=== PATIENT | female | born 1990 | race African-American/Black ===

== ENCOUNTER 2021-05-19 14:02 | Outpatient (CLI) | payer OTHER, SELFPAY ==
--- NOTE | ~2021-05-19 | US_ITS ---
EXAMINATION: US OB transvaginal DATE: 05/19/2021 14:26 INDICATION: Spotting during first trimester . TECHNIQUE: Real-time pelvic ultrasound utilizing both a transvaginal and transabdominal probe was pe rformed. The interpreting radiologist was not present for the study. COMPARISON: None. FINDINGS: The uterus measures 8.7 x 4.7 x 5.7 cm. There is an intrauterine gestational sac. A yolk sac is iden tified but there is no discernible pole. The mid sac diameter measures 7-8 mm. The right ovary measures 2.6 x 2.2 x 4.0 cm and contains a 1.4 similar anechoic cyst. The left ovary measures 2.6 x 2.1 x 2.2 cm. Minimal anechoic free fluid in the cul-de-sac. IMPRESSION: 1. Intrauterine gestational sac with subtle yolk sac but no discernible pole yet evident likely due to early stage of . Consider follow-up with serial beta-hCG levels and repeat imaging a s clinically indicated. Reviewed, dictated and finalized at location A. EDUCATOR IMPRESSION: 1. Intrauterine gestational sac with subtle yolk sac but no discernible p ole yet evident likely due to early stage of . Consider follow-up with serial beta-hCG levels and repeat imaging as clinically indicated.
== END 2021-05-19 14:03 ==
PROVIDERS: Visit Provider Nurse Practitioner
DX: O26.851 Spotting complicating pregnancy, first trimester (principal)
CPT/HCPCS: 76817

== ENCOUNTER 2021-05-25 14:05 | Outpatient (CLI) | payer OTHER, SELFPAY ==
--- NOTE | ~2021-05-25 | US_ITS ---
EXAMINATION: US OB transvaginal DATE: 05/25/2021 14:38 INDICATION: First trimester dating TECHNIQUE: Real-time pelvic transabdominal and transvaginal ultrasound was performed. COMPARISON: None. FINDINGS: The uterus measures 8.8 x 4.4 x 5.5 cm. There is an intrauterine gestational sac. There is a 7 mm hypoechoic area adjacent to the gestational sac. A yolk sac is identified. heart motion is identified measuring 112 beats per minute (bpm) by M-mode Doppler. The crown rump length me asures 4 mm , which correlates with an estimated gestational age of 6 weeks and 1 day(s) (+/-) 4 day( s). The right ovary measures 2.8 x 2.1 x 3.8 cm. The left ovary measures 2.3 x 2.7 x 2.3 cm. There is nor mal vascular flow in the ovaries. There is no free fluid in the pelvis. IMPRESSION: 1. Live intrauterine with an estimated gestational age of 6 weeks and 1 day(s) (+/-) 4 day( s) and an estimated delivery date of 01/17/2022. Reviewed, dictated and finalized at location F. UAGE INTERPRETER IMPRESSION: 1. Live intrauterine with an estimated gestational age of 6 weeks and 1 day(s) (+/-) 4 day(s) and an estimated delivery date of 01/17/2022.
== END 2021-05-25 14:06 ==
PROVIDERS: Visit Provider Nurse Practitioner
DX: Z36.87 Encounter for antenatal screening for uncertain dates (principal); Z3A.01 Less than 8 weeks gestation of pregnancy; O36.8911 Maternal care for other specified fetal problems, first trimester, fetus 1
CPT/HCPCS: 76817

== ENCOUNTER 2021-06-10 10:59 | Outpatient (CLI) | payer OTHER, SELFPAY ==
--- NOTE | ~2021-06-10 | US_ITS ---
EXAMINATION: US OB transvaginal DATE: 06/10/2021 11:23 INDICATION: Subchorionic hematoma follow-up, first trimester TECHNIQUE: Real-time pelvic transabdominal and transvaginal ultrasound was performed. COMPARISON: 05/25/2021 FINDINGS: The uterus measures 10.7 x 6.4 x 7.1 cm. There is an intrauterine gestational sac. There i s a subtle 5 mm x 6 mm hypoechoic area adjacent to the gestational sac with slight decrease in size s lui the comparison examination A yolk sac is identified. heart motion is identified measuring 177 beats per minute (bpm) by M-mode Doppler. The crown rump length measures 1.9 cm , which cor relates with an estimated gestational age of 8 weeks and 3 day(s) (+/-) 5 day(s). The right ovary measures 3.4 x 1.9 x 3.9 cm. The left ovary measures 2.6 x 1.5 x 2.2 cm. There is no free fluid in the pelvis. IMPRESSION: 1. Live intrauterine with an estimated gestational age of 8 weeks and 3 day(s) (+/-) 5 day( s) and an estimated delivery date of 01/17/2022. 2. Small subchorionic hematoma with decrease in size. Reviewed, dictated and finalized at location B. L TESTER IMPRESSION: 1. Live intrauterine with an estimated gestational age of 8 weeks and 3 day(s) (+/-) 5 day(s) and an estimated delivery date of 01/17/2022. 2. Small subchorionic hematoma with decrease in size.
== END 2021-06-10 11:00 ==
PROVIDERS: Visit Provider Obstetrics & Gynecology Gynecology
DX: O36.8910 Maternal care for other specified fetal problems, first trimester, not applicable or unspecified (principal); Z3A.08 8 weeks gestation of pregnancy
CPT/HCPCS: 76817

== ENCOUNTER 2021-06-23 11:26 | Outpatient (CLI) | payer OTHER, SELFPAY ==
--- NOTE | ~2021-06-23 | US_ITS ---
EXAMINATION: US OB limited EXAM DATE: 06/23/2021 11:45 INDICATION: Subchorionic hematoma. 1st trimester. TECHNIQUE: Pelvic obstetrical transabdominal sonogram was performed by a technologist. There are mu ltiple grayscale and Doppler images available for interpretation. Comparison is made to prior examina tion from 06/10/2021. FINDINGS: Uterus measures 13.4 x 7.0 x 7.6 cm. There is intrauterine gestation sac. pole with heart rate confirmed at 165 beats per minute. Yolk sac is identified. There is no sonographic brina dence of subchorionic hemorrhage. Ovaries not identified. IMPRESSION: Live intrauterine gestation with without evidence of subchorionic hematoma. Reviewed, dictated and finalized at location G. IMPRESSION: Live intrauterine gestation with without evidence of subchorionic h ematoma.
== END 2021-06-23 11:27 ==
PROVIDERS: Visit Provider Obstetrics & Gynecology Gynecology
DX: O36.8911 Maternal care for other specified fetal problems, first trimester, fetus 1 (principal); Z3A.10 10 weeks gestation of pregnancy
CPT/HCPCS: 76815

== ENCOUNTER → 2021-08-26 10:59 | Outpatient (CLI) | payer OTHER, MEDICAID, SELFPAY ==
--- NOTE | ~2021-08-26 | US_ITS ---
EXAMINATION: US OB /maternal detail DATE: 08/26/2021 11:29 INDICATION: Assess anatomy during second trimester TECHNIQUE: Multiple obstetric sonographic images performed. COMPARISON: 06/23/2021 and 06/10/2021 FINDINGS: There is a single living fetus in breech presentation. The placenta is anterior and not low-lying wi th caudal margin 7.4 cm from the internal cervical os. Amniotic fluid volume is subjectively normal. heart rate of 151 beats per minute. The following anatomy was identified as normal: Ventricles, choroid plexus, falx and cava septum pellucidum Cerebellum and cisterna magna Nuchal fold Upper lip Spine Heart Diaphragm Stomach Kidneys Bladder 3 vessel cord and cord insertion Bilateral upper and lower extremities including hands and feet The following biometric data were obtained: BPD: 4.6 cm -> 20 weeks 0 days Head circumference: 17.3 cm -> 19 weeks 6 days Abdominal circumference: 14.3 cm -> 19 weeks 5 days Femur length: 3.2 cm -> 19 weeks 6 days These measurements are concordant. Head circumference to abdominal circumference ratio: 1.21 (normal range 1.08-1.26). Estimated weight: 310 g (+/-) 47 g. or 11 oz. (+/-) 2 oz. IMPRESSION: 1. Single living fetus with breech presentation with heart rate of 151 bpm. 2. Estimated weight is 64th percentile by Hadlock criteria when 01/17/2022 is used as the ELIZABETH based upon earliest ultrasound performed at this institution on 06/20/2021. Please correlate with clin ical information or earlier ultrasounds for most accurate ELIZABETH. 3. Normal survey. Reviewed, dictated and finalized at location B. IMPRESSION: 1. Single living fetus with breech presentation with heart rate of 151 b pm. 2. Estimated weight is 64th percentile by Hadlock criteria when 01/18/20 22 is used as the ELIZABETH based upon earliest ultrasound performed at this institut ion on 06/20/2021. Please correlate with clinical information or earlier ultraso unds for most accurate ELIZABETH. 3. Normal survey.
== END ==
PROVIDERS: PCP Obstetrics & Gynecology Gynecology; Visit Provider Obstetrics & Gynecology Gynecology
DX: Z36.9 Encounter for antenatal screening, unspecified (principal)
CPT/HCPCS: 76805

== ENCOUNTER 2021-09-26 10:25 | Observation (INO) | payer OTHER, SELFPAY ==
[2021-09-26 10:57] VITALS: BMI 35.9
[2021-09-26 10:59] VITALS: BP 126/67; PULSE 78
[2021-09-26 11:42] LABS: Appearance Urine Clear (Clear); Bilirubin Urine Negative (Negative); Blood Urine 3+ (Negative); Color Urine Yellow (Yellow); Glucose Urine UA Negative (Negative); Ketones Urine Negative (Negative); Leukocyte Esterase Ur Negative LEU/UL (Negative); Nitrate Urine Negative (Negative); Protein Urine Negative (Negative); Specific Grav Ur 1.015 (1.001-1.035); Urobilinogen Urine 0.2 mg/dL (<2.0)
[2021-09-26 11:48] LABS: Bacteria Urine Trace /hpf; RBC Urine 51-75 /hpf (0-2); Squamous Epithelial Cell Urine Occasional /hpf (Few); WBC Urine 0-3 /hpf
[2021-09-26 11:54] LABS: Add Urine Microscopic? YES
--- NOTE | 2021-09-29 13:29 | P.PNOB_ITS ---
OB - Triage/Final Diagnosis Visit Information Comments/Additional reasons for admission: I have assessed the risk for this patient, Merari Mari, and determined that she would benefit from observation care. Evaluation Laboratory results: Laboratory Tests 09/26/21 11:06 Urine Color Yellow Urine Appearance Clear Urine pH 7.0 Ur Specific [place]ison 1.015 Urine Protein Negative Urine Glucose (UA) Negative Urine Ketones Negative Ur Blood (Man) 3+ H Urine Nitrate Negative Urine Bilirubin Negative Urine Urobilinogen 0.2 Leukocyte Esterase Rfl Negative Urine RBC 51-75 H Urine WBC 0-3 Ur Squamous Epith Cells Occasional Urine Bacteria Trace Final Diagnosis (1) Hematuria: Code(s): R31.9 - Hematuria, unspecified Status: Acute
== END 2021-09-26 11:55 | disposition home or self-care (01) ==
PROVIDERS: Admitting Provider Obstetrics & Gynecology; Visit Provider Obstetrics & Gynecology
DX: O26.899 Other specified pregnancy related conditions, unspecified trimester (principal); R31.9 Hematuria, unspecified; Z3A.00 Weeks of gestation of pregnancy not specified
CPT/HCPCS: 81001; G0378; G0379

== ENCOUNTER → 2021-11-11 11:29 | Outpatient (CLI) | payer OTHER, MEDICAID, SELFPAY ==
--- NOTE | ~2021-11-11 | US_ITS ---
EXAMINATION: US OB follow up DATE: 11/11/2021 11:51 INDICATION: Intrauterine growth restriction. Third trimester. TECHNIQUE: Real-time ultrasound of the pelvis was performed. COMPARISON: Ultrasound 08/26/2021, 05/19/2021, 05/19/21 FINDINGS: There is a single living fetus in vertex presentation. The placenta is anterior. heart rate is 155 beats per minute (bpm). The amniotic fluid index is 16.2 cm, which is normal. The following biometric data were obtained: Biparietal diameter (BPD): 7.4 cm; head circumference (HC): 26.8 cm; abdominal circumference (AC): 26 .3 cm; femur length (FL): 5.8 cm. These measurements are concordant. Estimated weight is 1518 g +/- 228 g, which correlates with the 28th percentile when 01/17/22 i s used as estimated date of delivery. As single measurements, these parameters are each equal to the following estimated gestational ages w ith ranges of +/- 2 standard deviations: BPD: 29 weeks 5 days (27 weeks 4 days - 31 weeks 6 days). HC: 29 weeks 1 days (27 weeks 1 days - 31 weeks 2 days). AC: 30 weeks 3 days (27 weeks 3 days - 33 weeks 2 days). FL: 30 weeks 1 days (28 weeks 1 days - 32 weeks 2 days). estimated gestational age based solely on measurements from this exam is 29 weeks 6 days +/- 2 weeks 1 days. IMPRESSION: 1. Single living fetus in vertex presentation. 2. Estimated weight is 1518 g +/- 228 g, which correlates with the 28th percentile when is used as estimated date of delivery. This date was set by ultrasound on 05/25/2021. Reviewed, dictated and finalized at location A. IMPRESSION: 1. Single living fetus in vertex presentation. 2. Estimated weight is 1518 g +/- 228 g, which correlates with the 28th percentile when 01/17/22 is used as estimated date of delivery. This date was s et by ultrasound on 05/25/2021.
== END ==
PROVIDERS: PCP Advanced Practice Midwife; Visit Provider Advanced Practice Midwife
DX: Z36.89 Encounter for other specified antenatal screening (principal)
CPT/HCPCS: 76816

== ENCOUNTER 2021-12-08 16:56 | Observation (INO) | payer OTHER, MEDICAID, SELFPAY ==
[2021-12-08 17:19] VITALS: BP 125/77; PULSE 91
[2021-12-08 17:24] VITALS: BMI 37.4
--- NOTE | 2021-12-08 17:24 | OBADM ---
This patient, Merari Mari, admitted to the OB room OB Post 116 for observation. Patient/family oriented to hospital policies and general routines including ID bracelet, bed and alarms, visiting hours, pain management, procedures, bathroom and other care routines, personal items, smoking policy, room service/diet, and visiting hours. Patient/Family are encouraged to report perceived risks to care and to ask questions if they do not understand what they are told or what they should do.
[2021-12-08 17:31] VITALS: BP 120/73; PULSE 81
[2021-12-08 17:46] VITALS: BP 121/68; PULSE 78
--- NOTE | 2021-12-08 18:05 | PM.OBTRLD ---
OB - Triage/Final Diagnosis Visit Information Comments/Additional reasons for admission: I have assessed the risk for this patient, Merari Mari, and determined that she would benefit from observation care. Evaluation Vital signs: Vital Signs - 24 hr 12/08/21 17:19 12/08/21 17:31 12/08/21 17:46 Pulse Rate 91 81 78 Blood Pressure 125/77 120/73 121/68 MDM - Vaginal Bleeding Differential Diagnosis labor, placental abruption Medical Records Attestation: I reviewed the patient's medical records. Lab Data Attestation: I reviewed the patient's lab results. Rh positive
--- NOTE | 2021-12-08 18:07 | PM.OBPNVD ---
OB - PN: Subj Subjective Date/time seen: 12/08/21 3774 Patient comments: no complaints OB - PN A/P Assessment and Plan (1) Vaginal bleeding during : Code(s): O46.90 - Antepartum hemorrhage, unspecified, unspecified trimester Status: Acute Plan Discharge home. Discussed PTL, ROM, movement, and vaginal bleeding precautions. Pt scheduled for f/up tomorrow in the office. Time Spent With Patient Time: Total time spent is greater than 50% in coordination of care (as documented) at patient's floor/unit and/or counseling patient: Review of Systems Review of Systems: Pt reports sudden bright red bleeding x 1 that was present with wiping after using the restroom. She denies trauma, fall, and recent intercourse. She denies contractions, abdominal pain, ROM, or increased pelvic pressure. She had no bleeding upon arrival to the hospital. All systems reviewed & are unremarkable except as noted in HPI and below Constitutional: Constitutional: Reports no additional constitutional complaints Exam Const: General: cooperative, healthy appearing and comfortable Chest: Chest palpation & inspection: normal inspection of the chest Resp: Effort & Inspection: normal respiratory effort GI: Inspection: normal to inspection GI Palp: Yes Soft to palpation : External Female Exam: normal external appearance Speculum Exam - Vagina: normal appearance of the vagina (no vaginal bleeding. Negative pooling. Cervix visually closed and long. ) Speculum Exam - Cervix: normal appearance of the cervix and Cervical os closed (closed/long/high, posterior. Moderate consistency. ) Bimanual exam- vagina & uterus: uterine size normal and uterine shape normal Manual OB Exam: Not dilated nor effaced Skin: General skin exam: normal color Neuro: General: patient oriented x3 Extrem: General: normal to inspection Psych: Appearance: grossly normal Mental Status: mental status grossly normal MDM - Vaginal Bleeding Differential Diagnosis labor, placental abruption
--- NOTE | 2021-12-08 18:09 | PC.NURSE ---
1805--Plan of care discussed with pt. Pt reminded to come to hospital if any pain,bleeding or leakage begins.
== END 2021-12-08 18:14 | disposition home or self-care (01) ==
LOC: ANHOBPP 17:02
PROVIDERS: Admitting Provider Obstetrics & Gynecology Gynecology; PCP Advanced Practice Midwife; Visit Provider Obstetrics & Gynecology Gynecology
DX: O46.93 Antepartum hemorrhage, unspecified, third trimester (principal); Z3A.34 34 weeks gestation of pregnancy
CPT/HCPCS: G0378; G0379

== ENCOUNTER → 2021-12-14 11:35 | Outpatient (CLI) | payer OTHER, MEDICAID, SELFPAY ==
--- NOTE | ~2021-12-14 | US_ITS ---
EXAMINATION: US OB follow up DATE: 12/14/2021 11:57 INDICATION: History of IUGR, third trimester TECHNIQUE: Real-time ultrasound of the pelvis was performed. The interpreting radiologist was not pre sent for the study. COMPARISON: 11/11/2021 FINDINGS: There is a single living fetus in vertex presentation. The placenta is anterior. card iac activity and movement are noted. heart rate is 138 beats per minute (bpm). The amniot ic fluid index is 12.9 cm which is normal (normal range: 7.9 cm to 24.9 cm). The following biometric data were obtained: Biparietal diameter (BPD): 8.3 cm; head circumference (HC): 29.8 cm; abdominal circumference (AC): 29 .9 cm; femur length (FL): 6.3 cm. These measurements are concordant. Estimated weight is 2181 g +/- 327 g, which correlates with the 9th percentile when 01/17/2022 is used as estimated date of delivery. As single measurements, these parameters are each equal to the following estimated gestational ages w ith ranges of +/- 2 standard deviations: BPD: 33 weeks 4 days ( 30 weeks 3 days - 36 weeks 4 days). HC: 33 weeks 0 days ( 30 weeks 0 days - 35 weeks 6 days). AC: 33 weeks 6 days ( 31 weeks 0 days - 36 weeks 6 days). FL: 32 weeks 3 days ( 29 weeks 3 days - 35 weeks 3 days). estimated gestational age based solely on measurements from this exam is 33 weeks 2 days +/- 2 weeks 2 days. IMPRESSION: 1. Single living fetus in vertex presentation. 2. Normal amniotic fluid index. 3. Estimated weight is 2181 g +/- 327 g, which correlates with the 9th percentile when 01/18/20 22 is used as estimated date of delivery. Reviewed, dictated and finalized at location B. IMPRESSION: 1. Single living fetus in vertex presentation. 2. Normal amniotic fluid index. 3. Estimated weight is 2181 g +/- 327 g, which correlates with the 9th pe rcentile when 01/17/2022 is used as estimated date of delivery.
== END ==
PROVIDERS: PCP Advanced Practice Midwife; Visit Provider Advanced Practice Midwife
DX: Z36.9 Encounter for antenatal screening, unspecified (principal)
CPT/HCPCS: 76816

== ENCOUNTER 2022-01-15 00:15 | Inpatient (IN) | payer OTHER, MEDICAID, SELFPAY ==
--- NOTE | 2021-12-23 14:15 | PC.NURSE ---
Patient states Dr Strickland is going to change her schedule C/S if she does not delivery as a from 01/18/22 at 0730 to 01/25/22 at 0730 Patient given requisition for lab draw on Sat before her scheduled C/S
[2022-01-15] VITALS (43 sets, daily range): BP systolic 105–130; BP diastolic 34–81; PULSE 57–91; RESP 16–18; TEMP 35.8–36.8; O2SAT 95–100; BMI 40.4
--- NOTE | 2022-01-15 00:15 | LDADM ---
This patient, Merari Mari, was admitted to Labor/Delivery/Recovery 102 on 01/15/22 at 00:15. Plans for labor, pain management and were discussed with patient. Patient/family oriented to hospital policies and general routines including ID bracelet, bed and alarms, visiting hours, pain management, procedures, bathroom and other care routines, personal items, smoking policy, room service/diet and guest tray routines, infant security routines, and visiting hours. Patient/Family are encouraged to report perceived risks to care and to ask questions if they do not understand what they are told or what they should do. See OBIX for further documentation.
--- NOTE | 2022-01-15 01:44 | WPDHPUPDATE1 ---
History and Physical Update Update Date/Time: 01/15/22 01:44 History and Physical has been reviewed, including an updated exam of the patient. There are NO changes in the patient's condition. Risks, benefits, and alternatives have been discussed and questions answered. Patient agrees to proceed with procedure.
--- NOTE | 2022-01-15 01:45 | PM.IMHP ---
H&P: HPI History of Present Illness Date/Time: 01/15/22 01:45 Chief Complaint: Labor at 39 and 5/7 weeks with previous Narrative: the patient is a 31-year-old 3 para 1 aborted 1 admitted in early labor 39 and 5/7 weeks. Patient with previous low-transverse section wishing to have trial of labor. On admission patient is 1.5cm. heart tones are reactive. Patient then proceeded to have a 8minute bradycardic episode. After discussion with the patient it was decided to proceed with repeat . was complicated in the 1st trimester by subchorionic hematoma that resolved. The has been otherwise uncomplicated. labs B positive, rubella nonimmune, RPR negative, hepatitis-B surface antigen negative, HIV negative, group B strep negative. Review of Systems Review of Systems: Contractions good movement PMFSH Past Medical History Medical History (Updated 01/15/22 @ 01:51 by Bisi Strickland MD) Sickle cell trait Surgical History Surgical History (Updated 01/15/22 @ 01:51 by Bisi Strickland MD) History of 36 weeks intrauterine growth restriction 4lb 2oz. 2014 Family History Family History (Updated 01/15/22 @ 01:49 by Bisi Strickland MD) Grandparent Diabetes mellitus Cerebrovascular accident Hypertension Other Unknown family medical history Social History Social History Substance use: never Spiritual care concerns: No Meds Home Medications and Allergies Home Medications Medication Instructions Recorded Confirmed Type prenat.vits,smita,dze-psus-vibuo 1 tablet PO DAILY 09/26/21 09/26/21 History Allergies Allergy/AdvReac Type Severity Reaction Status Date / Time No Known Allergies Allergy Verified 12/23/21 13:53 Exam Const: General: alert, awake and other ( uncomfortable with contractions) Resp: Effort & Inspection: normal respiratory effort GI: GI Palp: No abdominal tenderness, Yes Soft to palpation and Yes Other GI palpation findings present ( gravid ) : Manual OB Exam: dilated 2 cm, effaced 50% and station (per RN) -2 Assessment and Plan Assessment and plan (1) 39 weeks gestation of : Code(s): Z3A.39 - 39 weeks gestation of Status: Acute (2) History of : Code(s): Z98.891 - History of uterine scar from previous surgery Status: Acute (3) bradycardia: Status: Acute Assessment and Plan: due to the 8 minute bradycardic episode in early labor plan is to proceed with repeat section
--- NOTE | 2022-01-15 01:50 | P.PNAN_ITS ---
Anes - Eval Pre Procedure Procedure: Operation Date: 01/15/22 02:00 Proposed Procedures p Section(Not Applicable) - Bisi Strickland MD Operation Date: 01/18/22 07:30 Proposed Procedures p Section - Bisi Strickland MD Date/Time: 01/15/22 01:50 Pre Op Diagnosis: contractions Patient Data Age: 31 Gender: F Height: 1.6 m Weight: 103.5 kg Allergies Allergy/AdvReac Type Severity Reaction Status Date / Time No Known Allergies Allergy Verified 12/23/21 13:53 Home Medications Medication Instructions Recorded Confirmed Type prenat.vits,smita,lfx-ihcr-rayhr 1 tablet PO DAILY 09/26/21 09/26/21 History Laboratory Tests 01/15/22 01/15/22 01:39 01:39 WBC Pending RBC Pending Hgb Pending Hct Pending MCV Pending MCH Pending MCHC Pending RDW Pending Plt Count Pending MPV Pending Immature Gran % (Auto) Pending Neut % (Auto) Pending Lymph % (Auto) Pending [place] % (Auto) Pending Eos % (Auto) Pending Baso % (Auto) Pending Lymph # (Auto) Pending [place] # (Auto) Pending Eos # (Auto) Pending Baso # (Auto) Pending Abs Immat Gran (auto) Pending Absolute Neuts (auto) Pending Absolute Nucleated RBC Pending Nucleated RBC % Pending RPR Pending Patient hx anesthesia problems: none Family hx anesthesia problems: none Results Review: All pre-operative results and documents have been reviewed as part of the pre- operative evaluation. [facility] Past Medical History Medical History Morbid obesity and not yet delivered Sickle cell trait Surgical History Surgical History History of 36 weeks intrauterine growth restriction 4lb 2oz. 2014 Family History Family History Grandparent Diabetes mellitus Cerebrovascular accident Hypertension Other Unknown family medical history Social History Social History Substance use: never Spiritual care concerns: No Exam Day of Procedure 01/15/22 01:50 Patient weight: morbidly obese Airway: Mallampati scale class II
[2022-01-15 01:55] LABS: Hematocrit 30.7 % (37.0-47.0); Hemoglobin 9.7 g/dL (12.0-15.0); Immature Platelet Fraction Pct 10.4 % (0.9-11.2); Mean Corpuscular HGB Conc 31.6 g/dl (32-36); Mean Corpuscular Hemoglobin 21.8 pg (26-34); Mean Platelet Volume 12.2 fl (7.4-10.4); Platelet Count Result 344 k/mm3 (150-375); Red Blood Count 4.45 M/mm3 (4.2-5.4); Red Cell Distribution Width 15.4 % (11.5-14.5); White Blood Count 7.7 K/mm3 (4.5-10.0)
[2022-01-15] MEDS: LACTATED RINGERS 1,000 ML 125 ML IV CONT (02:00)
[2022-01-15] MEDS: ceFAZolin 2 GM/D5W 50 ML 2 GM/50 ML BAG IVPB (02:05)
[2022-01-15 02:27] LABS: Band Neutrophils Percent 3 % (0-6); Eosinophils Absolute Manual 0.07 K/mm3 (0.02-0.5); Eosinophils Percent Manual 1 % (0-4); Lymphocytes Absolute Manual 1.84 K/mm3 (1.1-4.5); Monocytes Percent Manual 4 % (3-9); Myelocytes Percent 1 %; Neutrophils Absolute Manual 5.23 K/mm3 (1.7-7.2); Neutrophils Percent Manual 65 % (46-73); Plasma Cells 2; Total Cells Counted 100
[2022-01-15 02:28] LABS: Anisocytosis 1+ (NORMAL); Giant Platelets Present; Hypochromasia 1+ (NORMAL); Macrocytosis 1+ (NORMAL); Microcytosis 1+ (NORMAL); Platelet Estimate Adequate (Adequate); Poikilocytosis 1+ (NORMAL); Schistocytes None Seen (NORMAL); Tear Drop Cells 1+ (NORMAL)
[2022-01-15 02:29] LABS: Atypical Lymphocytes Present; Smudge Cells FEW
--- NOTE | 2022-01-15 02:48 | W.PM.PROC2 ---
Procedure Note - Detailed Date of Procedure 01/15/22 Pre-op Diagnosis Intrauterine at 39-5/7 weeks previous section labor bradycardic episode Post-op Diagnosis Same Procedure Performed repeat low transverse section Surgeon Bisi Strickland MD Anesthesia Spinal Findings Male infant 6lb 3oz with 9 and 9 Apgars. Normal-appearing tubes, ovaries, and uterus. Description of Procedure The patient was taken to the operating room and placed under spinal anesthesia. She was prepped and draped in the usual sterile fashion. Once anesthesia was deemed adequate, a Pfannenstiel skin incision was made with a scalpel and carried down to the underlying layer of fascia. Fascia was nicked in the midline. The incision was extended laterally using Tyler scissors. Ochsner was used to tent the fascia which was then dissected off using sharp and blunt dissection. The rectus muscles are in the midline and the peritoneum tented and entered. The incision was extended with blunt traction. There is a band of scar tissue at the right fascia which is cut with Tyler scissors. The incision was again extended with adequate room. The bladder blade is placed. The vesicouterine peritoneum was tented entered with Metzenbaum scissors and extended laterally. The bladder flap is created using manual dissection. The lower uterine segment was incised in a transverse fashion with the scalpel. The incision was extended laterally using blunt traction. The 's head was brought up into the incision and delivered while the administrative library assistant applied fundal pressure. The remainder of the was fully delivered and the cord clamped and cut. The infant was handed to the waiting nursery nurse and anesthesiology medical doctor. The placenta is removed using manual traction after cord for gases and lap were taken. The uterus is cleared of all clots and debris and exteriorized. The uterine incision was closed using 0 Monocryl in a running locked fashion. Same suture was used to imbricate. Good hemostasis is noted. Cul-de-sac is irrigated and the uterus returned to the abdomen. The gutters were irrigated. The incision was again inspected and noted to be hemostatic. The fascia was closed using 0 Vicryl in a running fashion. Subcutaneous tissues are irrigated and made hemostatic using Bovie cautery. The skin incision was closed using 4-0 Vicryl in a subcuticular fashion. Dermaflex was placed over the incision. Sponge, needle, and instrument counts are correct per the OR staff. Patient was given Ancef prior to incision. Estimated Blood Loss 645 Drains Yes ( Gracia catheter) Packing No Pathology Yes ( placenta) Complications No immediate complications Condition Stable Disposition Floor
--- NOTE | 2022-01-15 02:52 | PM.OBDSVD ---
DS: Admitting Diagnosis Discharge Date 01/18/22 Admitting Diagnosis intrauterine at 39 and 5/7 labor previous DS: Discharge Diagnosis Discharge Diagnosis (1) bradycardia: Status: Acute (2) History of : Code(s): Z98.891 - History of uterine scar from previous surgery Status: Acute (3) 39 weeks gestation of : Code(s): Z3A.39 - 39 weeks gestation of Status: Acute (4) delivery delivered: Code(s): O82 - Encounter for delivery without indication Status: Acute OB - DS: Summary OB Procedures : Ultrasound OB Procedures Intrapartum: low cervical, transverse OB Procedures: : None Peripartum Data Delivery Method: Section Procedures: Procedures Operation Date: 01/15/22 02:00 <No data on this case meets the specified criteria> Operation Date: 01/18/22 07:30 <No data on this case meets the specified criteria> complications: none Status at Discharge Functional status at discharge: independent ambulation Overall status at discharge: patient is progressing back to baseline Time Spent with Patient Time attestation: Total time spent providing and/or coordinating discharge services: DS: Data Data Completed and Pending Labs on day of discharge: Labs from last 24 hours 01/15/22 01/15/22 01/15/22 01:39 01:39 01:39 WBC 7.7 RBC 4.45 Hgb 9.7 L Hct 30.7 L MCV 69.0 L MCH 21.8 L MCHC 31.6 L RDW 15.4 H Plt Count 344 MPV 12.2 H Immature Gran % (Auto) Not Reportable Neut % (Auto) Not Reportable Lymph % (Auto) Not Reportable [place] % (Auto) Not Reportable Eos % (Auto) Not Reportable Baso % (Auto) Not Reportable Lymph # (Auto) Not Reportable [place] # (Auto) Not Reportable Eos # (Auto) Not Reportable Baso # (Auto) Not Reportable Abs Immat Gran (auto) Not Reportable Absolute Neuts (auto) Not Reportable Absolute Nucleated RBC Not Reportable Total Counted 100 Neutrophils % (Manual) 65 Band Neutrophils % 3 Lymphocytes % (Manual) 24.0 Monocytes % (Manual) 4 Eosinophils % (Manual) 1 Myelocytes % 1 Nucleated RBC % Not Reportable Abs Neuts (Manual) 5.23 Abs Lymphs (Manual) 1.84 Abs Monocytes (Manual) 0.30 Absolute Eos (Manual) 0.07 Atypical Lymphocytes Present Plasma Cells 2 Smudge Cells Few Platelet Estimate Adequate Giant Platelets Present % Immature Plt Fraction 10.4 Hypochromasia 1+ Poikilocytosis 1+ Anisocytosis 1+ Microcytosis 1+ Macrocytosis 1+ Tear Drop Cells 1+ Schistocytes None seen RPR Pending Blood Type B Positive Antibody Screen Negative Discharge Plan Discharge Attending physician on discharge: Bisi Strickland Discharging Clinician: Bisi Strickland Anticipated Discharge Date/Time: 01/18/22 02:53 Patient Disposition: Home, Self-Care Activity: may shower, may drive after 2 weeks and pelvic rest Diet: regular Wound Care Instructions: incision open to air Patient Instructions: Antibiotic Form Stand Alone Forms: General Discharge Information Follow-up/Referrals: Bsii Strickland MD [Physician] - 1 Week ( and 6 weeks) Discharge Medications: New hydrocodone-acetaminophen 5-325 mg tablet 1 tablet PO Q4H PRN (Reason: pain) Qty: 20 0RF norethindrone (contraceptive) 0.35 mg tablet 0.35 mg PO DAILY Qty: 84 3RF Continued prenat.vits,smita,gxa-plog-lkmim Tablet 1 tablet PO DAILY Date of admission: 01/15/22 00:15 Primary Care Provider: UNKNOWN,DOCTOR Admitting Provider: Bisi Strickland Attending physician on admission: Bisi Strickland Condition: Stable
[2022-01-15] MEDS: ONDANSETRON INJ 4 MG/2 ML VIAL IV PUSH ×3 (04:03→14:05)
[2022-01-15] MEDS: DEXTROSE 5%/0.45% SOD CHL 1,000 ML 125 ML IV CONT (04:35)
[2022-01-15] MEDS: HYDROcodone/acetaminophen (*CRX) 5-325 MG TABLET 1 TAB PO (05:35)
[2022-01-15] MEDS: IBUPROFEN 600 MG TABLET PO ×2 (05:35→20:00)
[2022-01-15] MEDS: KETOROLAC 30 MG/ML VIAL (*BKC) IV PUSH (08:45)
[2022-01-15] MEDS: HYDROcodone/acetaminophen (*CRX) 10-325 MG TABLET 1 TAB PO ×3 (10:55→20:01)
[2022-01-15] MEDS: POLYSACCHARIDE IRON COMPLEX 150 MG CAPSULE PO ×2 (10:56→16:48)
[2022-01-15] MEDS: DOCUSATE SODIUM 100 MG CAPSULE PO ×2 (10:56→16:48)
[2022-01-15] MEDS: MULTIVIT/MIN/PREN/FOL AC/IRON TABLET 1 TAB PO (10:57)
[2022-01-15] MEDS: KCL 20 MEQ/D5/0.45% SOD CHL 1,000 ML 125 ML IV CONT (12:34)
[2022-01-15 12:40] LABS: Rapid Plasma Reagin Non-Reactive (NonReactive)
--- NOTE | 2022-01-15 13:05 | PC.NURSE ---
Patient transferred to post room # via ( 287 ). Support person present. Oriented to unit, room, information board, rooming in, admission packet and security measures. Patient verbalizes understanding.
--- NOTE | 2022-01-15 14:22 | PC.NURSE ---
[id number] Introductions were made, then consulted with patient to assess needs related to . Mother led the conversation with her?plans to feed?her infant and the?experience so far. Resources provided for inpatient and outpatient services using a resource guide and mom/baby guide. Mother voiced understanding of information and request assistance waking her to breastfeed. Mother works well with her with encouragement and education. Mother is tired but wants to breastfeed her infant, then take a nap. Encouraged understanding of the benefits of skin to skin (unwrapping and placing vertically on her chest), responsive feeding and how to watch for early feeding signs, frequency of feeding on demand about every 8-12 times in 24 hours (every 2-3 hours), milk production, duration of feeding, signs of adequate intake/output and how to record on the feeding sheet. Reviewed positioning and ear, shoulder, hip alignment, supporting the breast, asymmetrical latch (off-center), and leading with the chin with a big open side gape. latched optimally to the right breast in football position. Education given to mother of how to visualize suck/swallow ratios and drinking at the breast. was able to maintain latch without discomfort to mother. Nipple care reviewed with optimal latch and good positioning. Resources used to facilitate learning were used with the mom and baby guide. Mother voiced understanding of responsive feedings, stimulating with skin to skin, hand expressed colostrum, massage touch, talking to to encourage if it has been 2 -3 hours since the start of the last , to call if does not latch or there is discomfort with . Reported to the primary RN.
[2022-01-16 03:45] VITALS: BP 114/73; PULSE 80; RESP 16; TEMP 36.9; O2SAT 98
[2022-01-16] MEDS: HYDROcodone/acetaminophen (*CRX) 10-325 MG TABLET 1 TAB PO ×5 (03:55→19:26)
[2022-01-16] MEDS: IBUPROFEN 600 MG TABLET PO ×4 (03:56→22:35)
[2022-01-16 05:11] LABS: Basophils Percent Auto 0.3 % (0.2-1.2); Eosinophils Absolute Auto 0.1 K/mm3 (0-0.3); Eosinophils Percent Auto 0.4 % (0-4.4); Hematocrit 26.8 % (37.0-47.0); Hemoglobin 8.5 g/dL (12.0-15.0); Immature Granulocyte Absolute 0.08 K/mm3 (0.00-0.031); Immature Granulocyte Percent A 0.7 % (0-0.5); Immature Platelet Fraction Pct 10.6 % (0.9-11.2); Lymphocytes Absolute Auto 1.94 K/mm3 (0.9-3.2); Lymphocytes Percent Auto 16.8 % (18.3-44.2); Mean Corpuscular HGB Conc 31.7 g/dl (32-36); Mean Corpuscular Hemoglobin 22.1 pg (26-34); Mean Corpuscular Volume 69.8 fl (80-100); Mean Platelet Volume 12.2 fl (7.4-10.4); Monocytes Absolute Auto 0.7 K/mm3 (0.1-0.6); Monocytes Percent Auto 6.3 % (2.6-8.5); Neutrophils Absolute Auto 8.7 K/mm3 (1.3-6.7); Neutrophils Percent Auto 75.5 % (45.5-73.1); Platelet Count Result 282 k/mm3 (150-375); Red Blood Count 3.84 M/mm3 (4.2-5.4); Red Cell Distribution Width 15.4 % (11.5-14.5); White Blood Count 11.5 K/mm3 (4.5-10.0)
[2022-01-16 07:41] LABS: Hypochromasia 2+ (NORMAL); Platelet Estimate Adequate (Adequate); Schistocytes 1+ (NORMAL)
[2022-01-16 08:00] VITALS: BP 126/80; PULSE 80; RESP 14; TEMP 36.5; O2SAT 99
[2022-01-16] MEDS: DOCUSATE SODIUM 100 MG CAPSULE PO ×2 (08:30→16:20)
[2022-01-16] MEDS: MULTIVIT/MIN/PREN/FOL AC/IRON TABLET 1 TAB PO (08:30)
[2022-01-16] MEDS: POLYSACCHARIDE IRON COMPLEX 150 MG CAPSULE PO ×2 (08:30→16:20)
--- NOTE | 2022-01-16 12:49 | PM.OBPNVD ---
OB - PN: Subj Subjective Date/time seen: 01/16/22 12:10 Patient comments: pain well controlled OB - PN: Obj Data Labs CBC & Chem 7: 01/16/22 03:54 Labs: Laboratory Results - last 24 hr 01/16/22 03:54 WBC 11.5 H RBC 3.84 L Hgb 8.5 L Hct 26.8 L MCV 69.8 L MCH 22.1 L MCHC 31.7 L RDW 15.4 H Plt Count 282 MPV 12.2 H Immature Gran % (Auto) 0.7 H Neut % (Auto) 75.5 H Lymph % (Auto) 16.8 L [place] % (Auto) 6.3 Eos % (Auto) 0.4 Baso % (Auto) 0.3 Lymph # (Auto) 1.94 [place] # (Auto) 0.7 H Eos # (Auto) 0.1 Baso # (Auto) 0.0 Abs Immat Gran (auto) 0.08 H Absolute Neuts (auto) 8.7 H Absolute Nucleated RBC 0.0 Nucleated RBC % 0.0 Platelet Estimate Adequate % Immature Plt Fraction 10.6 Hypochromasia 2+ Schistocytes 1+ OB - PN A/P Plan day: 1 Plan: routine care Time Spent With Patient Time: Total time spent is greater than 50% in coordination of care (as documented) at patient's floor/unit and/or counseling patient: Review of Systems Review of Systems: All systems reviewed & are unremarkable except as noted in HPI and below Exam Const: General: comfortable and no acute distress Orientation/consciousness: patient oriented x3 Limitations: no limitations Resp: Effort & Inspection: normal respiratory effort and able to speak in complete sentences Auscultation: clear to auscultation bilaterally Cardio: Rate: regular rate Peripheral pulses: Peripheral pulses 2+ throughout GI: Inspection: normal to inspection Auscultation: normal bowel sounds : General: Yes bladder normal to palpation Bimanual exam- vagina & uterus: bladder normal to palpation Other: Fundus firm Skin: General skin exam: normal color Other: Incision intact. Skin glue present. No drainage. Neuro: General: patient oriented x3 Cognition (Neuro): normal cognition Speech: normal speech Extrem: General: normal to inspection Psych: Appearance: grossly normal Mental Status: mental status grossly normal Speech and movement: Normal speech and movement present Affect: normal affect Attitude: cooperative Thought process: Normal thought process present
--- NOTE | 2022-01-16 13:03 | WPDANLDPN2 ---
Anes-Prog Note L&D Date/Time: 01/16/22 13:03 Comfortable throughout: section Neuraxial method: spinal Epidural/Spinal procedure site: clean & non-tender Neuro status: Neuro function grossly intact. Cardiovascular status: normal Respiratory status: normal Airway patency: baseline Mental status: baseline Post-Op hydration status: normal Vital Signs: Last Vital Signs Temp 36.5 C 01/16/22 08:00 Pulse 80 01/16/22 08:00 Resp 14 01/16/22 08:00 BP 126/80 01/16/22 08:00 Pulse Ox 99 01/16/22 08:00 O2 Del Method Room Air 01/16/22 08:30 Pain score (VAS): 2/10 I/O: Intake & Output 01/15/22 01/16/22 01/16/22 23:59 07:59 15:59 Intake Total 640 500 Output Total 975 900 900 Balance -335 -400 -900 Post-procedural complaints: none Patient feedback: Patient satisfied with anesthetic care.
--- NOTE | 2022-01-16 13:04 | WPDANLDNPN2 ---
Anes-Prog Note L&D-Neuraxial Date/Time: 01/16/22 13:04 Neuraxial medications: intrathecal PF morphine Opiod-related complaints: none Patient feedback: Patient satisfied with post-operative pain management.
[2022-01-16] MEDS: SIMETHICONE 80 MG TAB.CHEW PO ×2 (19:26→22:35)
[2022-01-16 19:28] VITALS: BP 122/71; PULSE 103; RESP 18; TEMP 37.3; O2SAT 98
[2022-01-16] MEDS: HYDROcodone/acetaminophen (*CRX) 5-325 MG TABLET 1 TAB PO (22:34)
[2022-01-17] MEDS: HYDROcodone/acetaminophen (*CRX) 10-325 MG TABLET 1 TAB PO ×5 (01:11→16:57)
[2022-01-17] MEDS: IBUPROFEN 600 MG TABLET PO ×3 (05:02→22:23)
[2022-01-17] MEDS: SIMETHICONE 80 MG TAB.CHEW PO ×2 (05:03→22:23)
[2022-01-17] MEDS: MULTIVIT/MIN/PREN/FOL AC/IRON TABLET 1 TAB PO (10:07)
[2022-01-17] MEDS: POLYSACCHARIDE IRON COMPLEX 150 MG CAPSULE PO ×2 (10:07→16:58)
[2022-01-17] MEDS: DOCUSATE SODIUM 100 MG CAPSULE PO ×2 (10:07→16:58)
[2022-01-17 10:29] VITALS: BP 126/71; PULSE 91; RESP 16; TEMP 36.7
--- NOTE | 2022-01-17 11:36 | PM.OBPNVD ---
OB - PN: Subj Subjective Date/time seen: 01/17/22 11:20 Patient comments: no complaints and pain well controlled feeding status: breast and bottle feeding Narrative: Reports infant latching well. She is supplementing with formula due to infant's weight loss. OB - PN: Obj Data Labs CBC & Chem 7: 01/16/22 03:54 OB - PN A/P Plan day: 2 Plan: routine care Time Spent With Patient Time: Total time spent is greater than 50% in coordination of care (as documented) at patient's floor/unit and/or counseling patient: Review of Systems Review of Systems: Declines dizziness. All systems reviewed & are unremarkable except as noted in HPI and below Exam Const: General: comfortable, no acute distress and alert Orientation/consciousness: patient oriented x3 Limitations: no limitations Resp: Effort & Inspection: normal respiratory effort and able to speak in complete sentences Auscultation: clear to auscultation bilaterally Cardio: Rate: regular rate Peripheral pulses: Peripheral pulses 2+ throughout GI: Inspection: normal to inspection Auscultation: normal bowel sounds : General: Yes bladder normal to palpation Bimanual exam- vagina & uterus: bladder normal to palpation Other: Fundus firm Skin: General skin exam: normal color Other: Incision approximated, intact. Skin glue intact. Neuro: General: patient oriented x3 Cognition (Neuro): normal cognition Speech: normal speech Extrem: General: normal to inspection Psych: Appearance: grossly normal Mental Status: mental status grossly normal Speech and movement: Normal speech and movement present Affect: normal affect Attitude: cooperative Thought process: Normal thought process present
[2022-01-17 19:10] VITALS: BP 131/76; PULSE 81; RESP 16; TEMP 36.3
[2022-01-17] MEDS: HYDROcodone/acetaminophen (*CRX) 5-325 MG TABLET 1 TAB PO (22:23)
[2022-01-18] MEDS: SIMETHICONE 80 MG TAB.CHEW PO (02:42)
[2022-01-18] MEDS: HYDROcodone/acetaminophen (*CRX) 10-325 MG TABLET 1 TAB PO (02:42)
[2022-01-18] MEDS: IBUPROFEN 600 MG TABLET PO (06:58)
[2022-01-18] MEDS: DOCUSATE SODIUM 100 MG CAPSULE PO (06:59)
[2022-01-18] MEDS: HYDROcodone/acetaminophen (*CRX) 5-325 MG TABLET 1 TAB PO ×2 (06:59→10:51)
[2022-01-18] MEDS: MULTIVIT/MIN/PREN/FOL AC/IRON TABLET 1 TAB PO (06:59)
[2022-01-18] MEDS: POLYSACCHARIDE IRON COMPLEX 150 MG CAPSULE PO (06:59)
[2022-01-18 07:50] VITALS: BP 126/67; PULSE 82; RESP 18; TEMP 36.1; O2SAT 99
--- NOTE | 2022-01-18 09:33 | PM.OBPNVD ---
OB - PN: Subj Subjective Date/time seen: 01/18/22 09:33 Patient comments: no complaints and pain well controlled baby status: doing well OB - PN: Obj Data Labs CBC & Chem 7: 01/16/22 03:54 OB - PN A/P Plan day: 3 Plan: routine care, discharge home and other (plans oc's) Time Spent With Patient Time: Total time spent is greater than 50% in coordination of care (as documented) at patient's floor/unit and/or counseling patient: Exam Narrative: inc c/d/i : Bimanual exam- vagina & uterus: other (Uterus firm, nt @U)
[2022-01-18] MEDS: MEASLES,MUMPS,RUBELLA VACCINE 0.5 ML VIAL SUB-Q (10:46)
--- NOTE | 2022-01-18 11:03 | PC.NURSE ---
Patient viewed the discharge video Mother & Baby Care, The First Two Weeks . Patient was given the opportunity and encouraged to ask questions. Patient verbalized understanding of information shared and has been given the mother/baby guide for home reference.
[2022-01-20 11:42] VITALS: BP 138/76; PULSE 74; RESP 20; TEMP 36.7; O2SAT 100
== END 2022-01-18 12:20 | disposition home or self-care (01) | DRG 788 ==
LOC: ANHLDR 02:54 → ANHOB2 05:24
PROVIDERS: Admitting Provider Obstetrics & Gynecology Gynecology; Visit Provider Obstetrics & Gynecology Gynecology
PROC: 10D00Z1 Extraction of Products of Conception, Low, Open Approach (ICD-10-PCS; CPT 59514; principal; 2022-01-15 02:00)
DX: O34.219 Maternal care for unspecified type scar from previous cesarean delivery (principal); O76 Abnormality in fetal heart rate and rhythm complicating labor and delivery; O99.02 Anemia complicating childbirth; D57.3 Sickle-cell trait; Z3A.39 39 weeks gestation of pregnancy; Z37.0 Single live birth; Z23 Encounter for immunization
CPT/HCPCS: 36415; 85025; 85055; 86592; 86850; 86900; 86901; 88307; 90471; 90686; 90710; 90715; A9270; G0008; J0690; J1885; J2274; J2405; J2590; J3480; J7120